=== PATIENT | female | born 2000 | race Caucasian/White ===

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

== ENCOUNTER 2020-11-08 20:44 | Emergency (ER) | payer OTHER ==
[2020-11-08 21:35] LABS: HEMOGLOBIN 16.2 gm/dl (12.3-15.3); RED BLOOD COUNT 4.88 M/UL (4.00-5.10); WHITE BLOOD COUNT 10.6 K/UL (4.5-11.0)
[2020-11-08 21:45] LABS: BUN/CREATININE RATIO 11 (0-10)
== END 2020-11-08 23:30 | disposition home or self-care (01) ==
LOC: ER1 20:44
PROVIDERS: Emergency Medicine
DX: R07.9 Chest pain, unspecified (principal); I10 Essential (primary) hypertension; F17.210 Nicotine dependence, cigarettes, uncomplicated
CPT/HCPCS: 36415; 71045; 80053; 84703; 85025; 85379; 93005; 99285

== ENCOUNTER 2020-12-18 21:51 | Emergency (ER) | payer OTHER ==
[2020-12-18 23:33] LABS: HEMOGLOBIN 13.9 gm/dl (12.3-15.3); RED BLOOD COUNT 4.24 M/UL (4.00-5.10); WHITE BLOOD COUNT 7.2 K/UL (4.5-11.0)
[2020-12-18 23:52] LABS: BUN/CREATININE RATIO 9 (0-10)
[2020-12-19] MEDS ORDERED: IBUPROFEN600 MG PO (00:39)
== END 2020-12-19 01:30 | disposition home or self-care (01) ==
LOC: ER1 21:51
PROVIDERS: Internal Medicine
DX: R07.9 Chest pain, unspecified (principal); I10 Essential (primary) hypertension; F17.220 Nicotine dependence, chewing tobacco, uncomplicated
CPT/HCPCS: 71046; 80053; 82550; 82553; 83874; 84484; 84703; 85025; 85379; 93005; 99285

== ENCOUNTER 2021-06-30 04:23 | Emergency (ER) | payer OTHER ==
[~2021-06-30 04:23] MED LIST changes: +IBUPROFEN600 MG PO
== END 2021-06-30 06:00 | disposition home or self-care (01) ==
LOC: ER1 04:23
DX: U07.1 COVID-19 (principal); I10 Essential (primary) hypertension; F17.200 Nicotine dependence, unspecified, uncomplicated
CPT/HCPCS: 99284; U0002